=== PATIENT | female | born 1960 | race Caucasian/White ===

== ENCOUNTER 2016-07-28 18:30 | Emergency (ER) | payer OTHER ==
[~2016-07-28] VITALS: Ht 165.1 cm; Wt 61.4 kg
[2016-07-28 18:46] VITALS: BP 176/86; PULSE 63; RESP 16; O2SAT 100
[2016-07-28 19:33] LABS: BASOPHILS % (AUTO) 0.4 % (0-3); EOSINOPHILS % (AUTO) 0.5 % (0-5); MONOCYTES % (AUTO) 4.3 % (4-12); Mean Corpuscular Hemoglobin 29.8 pg (27.0-35.0); Mean Corpuscular Volume 88.4 fL (81-100); NEUTROPHILS % (AUTO) 71.5 % (40-74); Platelet Count 212 bil/L (150-400)
[2016-07-28 19:57] LABS: TROPONIN T < 0.010 ug/L (0.0-0.011)
[2016-07-28 20:05] LABS: Magnesium 2.2 mg/dL (1.6-2.6)
[2016-07-28 20:06] VITALS: BP 150/73; PULSE 54; RESP 12; O2SAT 100
--- NOTE | 2016-07-28 20:49 | ED.REPORT ---
HPI-Chest Pain 40 and Over Date of Service Jul 28, 2016 ED Provider: Ever Knight MD Pt is a healthy 56 y/o female presenting to the ED c/o intermittent palpitations onset 15:00 today. These episodes typically occur about once/month but today the episode lasted about 2 hours which is unusual. During these episodes of palpitations, she experiences dizziness, nausea, and anxiety. She has had similar symptoms previously but has never been seen for it or spoken about it to with PCP. Pt denies CP, SOB. She did drink coffee today. She is PERC negative. Nursing Notes Stated Complaint: RAPID HEART RATE, NAUSEA, DIZZINESS Chief Complaint: Dysrhythmia/Cardiac Nursing Notes Reviewed: Yes Allergies: Coded Allergies: No Known Allergies (Unverified , 07/28/16) No Active Prescriptions or Reported Meds General Time Seen by MD: 20:47 Chief Complaint Other (rapid palps) Hx Obtained From: Patient, Spouse Arrived By: Walk-in Sudden in Onset?: No Onset Occurred: 1 - 4 hours ago Symptom Duration: Intermittent Severity: Current: No pain currently Severity: Maximum: No pain Similar Sx Previous: Yes Risk Factors PERC Rule Age 50 or over PERC Result: PERC rule satisfied Past Medical History Past Medical History Denies Past Surgical History Back Reports: Social History Alcohol Use: "Social" Ambulatory Status Independent Review of Systems Constitutional: Denies: Chills, Fever Respiratory: Denies: Hemoptysis, Non-productive cough, Shortness of breath Cardiovascular: Reports: Palpitations, Denies: Chest pain, Dyspnea on exertion GI: Reports: Nausea, Denies: Abdominal pain, Vomiting Skin: Denies Bruising, Denies Diaphoresis Neurologic: Reports: Dizziness, Lightheaded Psychiatric: Reports: Anxiety, Denies: Change mental status Complete sys rev & neg: except as marked. Physical Exam Initial Vital Signs Vital Signs (First) Date Time Temp Pulse Resp B/P Pulse Ox O2 Delivery O2 Flow Rate FiO2 07/28/16 18:46 36.3 63 16 176/86 100 Room Air Initial VS: Reviewed, Vital signs abnormal Head / Eyes: Atraumatic, Normocephalic, PERRL ENT: Mucous membranes moist, Conjunctiva normal, No scleral icterus Neck: Supple, Full range of motion Extremities: Vascular intact, Neuro intact, No swelling, No tenderness Skin: Warm, Dry, No cyanosis Psychiatric: Mood/affect normal, Behavior normal, Normal thought content General/Constitutional: Awake, Alert, No acute distress, Cooperative, Not toxic appearing Respiratory / Chest: Atraumatic, Breath sounds NL, Breath sounds = bilat, No respiratory distress, No rales, No rhonchi, No wheezing, No retractions, No stridor, No chest tenderness, No chest wall deformity, No crepitus Cardiovascular: Heart rate NL, Regular rhythm, Heart sounds NL, No gallop, No murmurs, No rubs, Cap refill not delayed, Peripheral circulation NL Abdomen: Atraumatic, Soft, Non-tender, No guarding, No rebound, No distention, No palpable mass Neurologic: Oriented X3, Speech NL, No motor deficits, No sensory deficits, CN II - XII intact, Cerebellar NL, Memory NL Interpretation & Diagnostics Lab Results Interpretation Result Diagram: 07/28/16192407/28/161924 Test 07/28/16 19:25 White Blood Count 7.6th/mm3 (3.8-10.1) Red Blood Count 4.57mil/mm3 (3.90-5.20) Hemoglobin 13.6g/dL (12.0-15.6) Hematocrit 40.4% (35.0-46.0) Mean Corpuscular Volume 88.4fL (81-100) Mean Corpuscular Hemoglobin 29.8pg (27.0-35.0) Mean Corpuscular Hemoglobin Concent 33.7% (32.0-37.0) Red Cell Distribution Width 13.0% (12.3-15.4) Platelet Count 212bil/L (150-400) Neutrophils (%) (Auto) 71.5% (40-74) Lymphocytes (%) (Auto) 23.2% (14-46) Monocytes (%) (Auto) 4.3% (4-12) Eosinophils (%) (Auto) 0.5% (0-5) Basophils (%) (Auto) 0.4% (0-3) Sodium Level 139mEq/L (134-144) Potassium Level 3.9mEq/L (3.5-5.2) Chloride Level 100mEq/L (97-108) Carbon Dioxide Level 22mmol/L (18-29) Blood Urea Nitrogen 16mg/dL (6-24) Creatinine 0.82mg/dL (0.57-1.00) Estimat Glomerular Filtration Rate 103mL/min (>59) Glucose Level 113mg/dL (60-99) Calcium Level 9.4mg/dL (8.5-10.1) Magnesium Level 2.2mg/dL (1.6-2.6) Total Bilirubin 0.3mg/dL (0.0-1.2) Aspartate Amino Transf (AST/SGOT) 49U/L (0-50) Alanine Aminotransferase (ALT/SGPT) 64U/L (0-32) Alkaline Phosphatase 90U/L (25-150) Troponin T < 0.010ug/L (0.0-0.011) Total Protein 7.3g/dL (6.4-8.4) Albumin 4.7g/dL (3.4-5.0) Hold Keyes Top Tube Received (Received) ECG Interpretation ECG Interpretation: Sinus rhythm rate 61 Time: 20:57 Interpreted by: ED physician Normal ECG Interpretation: Normal rate, Normal sinus rhythm, No acute ischemic changes, Normal QRS, Normal axis, Normal intervals, Adequate tracing Re-Eval/Medical Decision Med Decision/Clinical Course 56-year-old female with episodic palpitations earlier today. She drank lots of coffee today which can cause palpitations for her. Troponins negative. Pertinent negative. Lab stable. EKG normal. No arrhythmias on monitor. Discharge home with follow-up primary doctor. Time of Eval: 20:57 Re-Evaluation/Progress Note: Pt rechecked. Informed pt of plan for treatment. Pt understands and agrees with plan for treatment. F/U instructions and RTER warnings given. All questions addressed. Counseled Regarding: Diagnosis, Lab results, Need for follow-up, When/why to return to ED Discharge & Departure Primary Impression: Palpitations Disposition: Home Discharge Condition All VS Reviewed: Yes Condition: Stable Patient Instructions: Palpitations (ED) Additional Instructions: The cause of your palpitations is unclear, but all dangerous causes have been ruled out at this point. Your labs and EKG were normal today. No abnormal rhythms were discovered. Follow-up with your doctor early next week for further outpatient evaluation. A Holter monitor may be considered at that time. Return to the emergency department if you experience chest pain, difficulty breathing, passing out, or for any other concerning symptoms. Referrals: Levi Rivera MD (PCP) [facility] Attestation Portions of this note were transcribed by Tuan Aguirre. I, Dr. Knight, personally performed the history, physical exam and medical decision-making; I reviewed and confirmed the accuracy of the information in the transcribed note. Signed by Ana Lilia Tan, 07/28/16 - 1900 copies to: Levi Rivera MD, Ben M MD Jul 28, 2016 20:49 TUAN AGUIRRE Jul 28, 2016 20:56
[2016-07-28 21:50] VITALS: BP 128/68; PULSE 59; RESP 18; O2SAT 95
== END 2016-07-28 21:20 | disposition home or self-care (01) ==
LOC: SED 18:30
DX: R00.2 Palpitations (principal); R42 Dizziness and giddiness; R11.0 Nausea